=== PATIENT | female | born 1990 | race Caucasian/White ===

== ENCOUNTER 2021-03-30 23:48 | Inpatient (IN) | payer BC ==
[~2021-03-30] VITALS: Ht 165.1 cm; Wt 78.0 kg
[2021-03-31] MEDS ORDERED: CALCIUM CARBONATE 500 MG TAB.CHEW ONE (00:29)
[2021-03-31 00:40] VITALS: BP 109/53
[2021-03-31] MEDS ORDERED: FENTANYL PF 100 MCG/2ML IVPush PRN (02:30)
[2021-03-31] MEDS ORDERED: LACTATED RINGERS 1,000 ML IV SCH (02:30)
[2021-03-31] MEDS ORDERED: OXYTOCIN 30U/ 0.9% NaCL 500ML 500 ML IV ONE (02:30)
[2021-03-31] MEDS ORDERED: TERBUTALINE 1 MG/ML, 1ML SQ PRN (02:30)
[2021-03-31] MEDS ORDERED: METOCLOPRAMIDE 5 MG/ML, 2ML IVPush PRN (02:30)
[2021-03-31] MEDS ORDERED: CALCIUM CARBONATE 500 MG TAB.CHEW PO PRN (02:30)
[2021-03-31] MEDS ORDERED: TERBUTALINE 1 MG/ML, 1ML IVPush PRN (02:30)
[2021-03-31] MEDS ORDERED: FENTANYL PF 100 MCG/2ML IV PRN (02:30)
[2021-03-31] MEDS ORDERED: ONDANSETRON 2MG/ML, 2ML IVPush PRN (02:30)
[2021-03-31 02:58] LABS: BASOPHILS % (AUTO) 1 % (0-1); EOSINOPHILS % (AUTO) 1 % (1-7); LYMPHOCYTES % (AUTO) 17 % (22-44); MEAN CORPUSCULAR HEMOGLOBIN 27.9 pg (27.0-34.8); MEAN CORPUSCULAR HGB CONC 33.2 g/dL (32.4-35.8); MEAN PLATELET VOLUME 8.7 fL (7.4-10.4); MONOCYTES % (AUTO) 8 % (2-9); NEUTROPHILS % (AUTO) 74 % (42-75); PLATELET COUNT 210 x10^3/uL (130-400); RED BLOOD COUNT 3.78 x10^6/uL (3.82-5.3); RED CELL DISTRIBUTION WIDTH 13.6 % (9.6-15.2)
[2021-03-31] MEDS ORDERED: NEWBORN KIT ONE (05:17)
[2021-03-31] MEDS ORDERED: MISOPROSTOL 200 MCG TABLET ONE (05:18)
[2021-03-31] MEDS ORDERED: LIDOCAINE 1%, 20ML ONE (05:18)
== END 2021-03-31 12:57 | disposition home or self-care (01) | DRG 832 ==
LOC: LDOP 23:48 → OBSVTOIN 03-31 02:22 → LDIP 03-31 02:22 → UNDODISOB 03-31 12:57
PROVIDERS: ADMIT Obstetrics & Gynecology; ATTEND Obstetrics & Gynecology
DX: O47.1 False labor at or after 37 completed weeks of gestation (principal); O99.413 Diseases of the circulatory system complicating pregnancy, third trimester; Q21.0 Ventricular septal defect; Z90.49 Acquired absence of other specified parts of digestive tract; Z88.0 Allergy status to penicillin; Z3A.37 37 weeks gestation of pregnancy
CPT/HCPCS: 36415; 59025; 85025; 86592; 86850; 86900; 87635; G0378

== ENCOUNTER 2021-04-11 11:53 | Inpatient (IN) | payer BC ==
[~2021-04-11] VITALS: Ht 165.1 cm; Wt 78.1 kg
[2021-04-11] MEDS ORDERED: LIDOCAINE 1%, 20ML ONE (11:55)
[2021-04-11] MEDS ORDERED: MISOPROSTOL 200 MCG TABLET ONE (11:55)
[2021-04-11] MEDS ORDERED: OXYTOCIN 30U/ 0.9% NaCL 500ML 500 ML ONE (11:56)
[2021-04-11] MEDS ORDERED: ONDANSETRON 2MG/ML, 2ML IVPush PRN (12:00)
[2021-04-11] MEDS ORDERED: LACTATED RINGERS 1,000 ML IV SCH (12:00)
[2021-04-11] MEDS ORDERED: SODIUM CITRATE/CITRIC ACID 30 ML UDC PO PRN (12:00)
[2021-04-11] MEDS ORDERED: TERBUTALINE 1 MG/ML, 1ML IVPush PRN (12:00)
[2021-04-11] MEDS ORDERED: METOCLOPRAMIDE 5 MG/ML, 2ML IVPush PRN (12:00)
[2021-04-11] MEDS ORDERED: TERBUTALINE 1 MG/ML, 1ML SQ PRN (12:00)
[2021-04-11] MEDS ORDERED: FENTANYL PF 100 MCG/2ML IV PRN (12:00)
[2021-04-11] MEDS ORDERED: OXYTOCIN 30U/ 0.9% NaCL 500ML 500 ML IV ONE (12:00)
[2021-04-11] MEDS ORDERED: FENTANYL PF 100 MCG/2ML IVPush PRN (12:00)
[2021-04-11] MEDS ORDERED: D5%-LACTATED RINGERS 1,000 ML IV SCH (12:00)
[2021-04-11] MEDS ORDERED: NEWBORN KIT ONE (12:12)
[2021-04-11] MEDS ORDERED: ONDANSETRON 2MG/ML, 2ML IV PRN (12:30)
[2021-04-11] MEDS ORDERED: MISOPROSTOL 200 MCG TABLET PR PRN (12:30)
[2021-04-11] MEDS: OXYTOCIN 30U/ 0.9% NaCL 500ML 500 ML IV SCH ×2 (12:30→22:30)
[2021-04-11] MEDS ORDERED: METHYLERGONOVINE 0.2 MG/ML IM PRN (12:30)
[2021-04-11] MEDS ORDERED: TRANEXAMIC ACID 100 MG/ML, 10ML IV ONE (12:30)
[2021-04-11] MEDS ORDERED: OXYcodone/APAP 5/325MG TABLET PO PRN (12:30)
[2021-04-11] MEDS ORDERED: SIMETHICONE 80 MG CHEW TAB PO PRN (12:30)
[2021-04-11] MEDS ORDERED: OXYcodone/APAP 5/325MG TABLET ONE (12:35)
[2021-04-11] MEDS ORDERED: IBUPROFEN 600 MG TABLET ONE (12:36)
[2021-04-11] MEDS: IBUPROFEN 600 MG TABLET PO PRN ×2 (12:45→23:49)
[2021-04-11] MEDS: OXYcodone/APAP 5/325MG TABLET PO PRN ×2 (12:46→23:50)
[2021-04-11 13:00] LABS: BASOPHILS % (AUTO) 0 % (0-1); EOSINOPHILS % (AUTO) 0 % (1-7); LYMPHOCYTES % (AUTO) 7 % (22-44); MEAN CORPUSCULAR HGB CONC 32.5 g/dL (32.4-35.8); MONOCYTES % (AUTO) 5 % (2-9); NEUTROPHILS % (AUTO) 88 % (42-75); PLATELET COUNT 202 x10^3/uL (130-400); RED BLOOD COUNT 3.97 x10^6/uL (3.82-5.3); RED CELL DISTRIBUTION WIDTH 14.3 % (9.6-15.2)
[2021-04-11 16:00] VITALS: BP 107/70
[2021-04-11 20:00] VITALS: BP 109/72
[2021-04-11] MEDS ORDERED: DIPH,PERTUSS(ACELL),TET VAC/PF NC IM-VACC ONE (20:30)
[2021-04-11] MEDS: DOCUSATE 100 MG CAPSULE PO PRN (21:00)
[2021-04-11 22:03] LABS: BASOPHILS % (AUTO) 1 % (0-1); EOSINOPHILS % (AUTO) 0 % (1-7); LYMPHOCYTES % (AUTO) 12 % (22-44); MEAN CORPUSCULAR HEMOGLOBIN 27.3 pg (27.0-34.8); MEAN CORPUSCULAR HGB CONC 33.2 g/dL (32.4-35.8); MONOCYTES % (AUTO) 6 % (2-9); NEUTROPHILS % (AUTO) 81 % (42-75); PLATELET COUNT 216 x10^3/uL (130-400); RED BLOOD COUNT 3.96 x10^6/uL (3.82-5.3); RED CELL DISTRIBUTION WIDTH 14.5 % (9.6-15.2)
[2021-04-12 00:05] VITALS: BP 99/63
[2021-04-12 04:25] VITALS: BP 95/59
[2021-04-12] MEDS: DOCUSATE 100 MG CAPSULE PO PRN (07:57)
[2021-04-12] MEDS: IBUPROFEN 600 MG TABLET PO PRN (07:57)
[2021-04-12 08:10] VITALS: BP 96/68
[2021-04-12] MEDS ORDERED: PRENATAL VIT/IRON/FA 1 EACH TABLET PO SCH (09:00)
== END 2021-04-12 14:00 | disposition home or self-care (01) | DRG 807 ==
LOC: LDOP 11:53 → LDIP 11:54 → 2NW 16:14
PROVIDERS: ADMIT Obstetrics & Gynecology; ATTEND Obstetrics & Gynecology
PROC: 10E0XZZ Delivery of Products of Conception, External Approach (ICD-10-PCS; principal; 2021-04-11)
PROC: 0KQM0ZZ Repair Perineum Muscle, Open Approach (ICD-10-PCS; 2021-04-11)
DX: O70.1 Second degree perineal laceration during delivery (principal); Z37.0 Single live birth; Z3A.38 38 weeks gestation of pregnancy; Z88.0 Allergy status to penicillin; Z20.822 Contact with and (suspected) exposure to COVID-19
CPT/HCPCS: 36415; 85025; 86592; 86850; 86900; 87635; 90715; G0378